=== PATIENT | male | born 1960 | race Asian ===

== ENCOUNTER 2017-01-29 05:54 | Inpatient (IN) | payer OTHER ==
--- NOTE | 2017-01-28 20:15 | Pre-op HX & Phy Repo 2 SIG ---
DATE OF ADMISSION: 01/29/2017 DATE OF SURGERY: 01/29/2017 HISTORY OF PRESENT ILLNESS: The patient is a 56-year-old, preoperative male to female sexual reassignment surgery patient in overall stable health. The patient presents with a diagnosis of gender dysphoria. PAST MEDICAL HISTORY: MEDICATIONS: Hormones that have been discontinued preoperatively, Avodart, and baby aspirin. ALLERGIES TO MEDICATIONS: None. OPERATIONS: Breast augmentation and facial feminization surgery. REVIEW OF SYSTEMS: GASTROINTESTINAL: The patient has a bowel movement every two to three days. The patient had colonoscopy in November 2016 that was negative. GENITOURINARY: The patient has occasional postvoid dribbling. No nocturia. The patient has a history of multiple small gallstones with a history of a passed common bile duct stone with an emergency room visit in approximately 2011. She has had occasional discomfort since, but rarely and had a CT scan in the recent past, which was negative. PHYSICAL EXAMINATION: GENERAL: The patient is 5 foot 10 inches, 150 pounds. ABDOMEN: Soft and nontender. There is no palpable mass. There is negative Boles sign. EXTREMITIES: Femoral pulses are 3+ bilaterally. RECTAL: Perianal skin is normal with skin tag x2. IMPRESSION: Gender dysphoria. PLAN: Sexual reassignment surgery, male to female. DISCUSSION: I have had a full discussion with the patient regarding my role in the surgery to create the vagina by dissecting the space between the urethra and bladder superiorly and the rectum posteriorly. I have discussed the nature of the procedure with the patient including the use of rigid sigmoidoscopy. I have discussed the risks including bleeding, infection, trauma to urinary tract or rectum, which could require additional procedures and also, I have discussed delayed presentation of a rectovaginal fistula that could require additional procedures and also I have discussed alterations in bowel function potentially. All questions have been answered. The patient understands and agrees to proceed. Tim Cerna M.D. DR: Suyapa JOB#: [id number] CC:
[~2017-01-29] VITALS: Ht 177.8 cm; Wt 68.0 kg
[2017-01-29] VITALS (19 sets, daily range): BP systolic 92–114; BP diastolic 52–74
[2017-01-29] MEDS ORDERED: AVODART0.5 MG ORAL (06:40)
[2017-01-29] MEDS ORDERED: ESTRADIOL0.5 MG PO (06:40)
[2017-01-29] MEDS ORDERED: MULTIVITAMINS1 EA14 PO (06:41)
[2017-01-29] MEDS ORDERED: ASPIR 8181 MG ORAL (06:41)
[2017-01-29] MEDS ORDERED: Bacitracin 50000 Units Vial ONE (07:03)
[2017-01-29] MEDS ORDERED: Bupivacaine 0.5% Inj 30 ml vial INJ ONE (07:04)
[2017-01-29] MEDS ORDERED: Lidocaine 1% 10mg/ml/Epi 0.005mg/ml 30ml vial INJ ONE (07:05)
[2017-01-29] MEDS ORDERED: Thrombin 5000 units TOPIC ONE (07:16)
[2017-01-29] MEDS ORDERED: Bupivacaine 0.25% Inj 30ml INJ ONE (07:17)
[2017-01-29] MEDS ORDERED: Lidocaine 1% 10mg/ml/EPI 0.01mg/ml 50ml INJ ONE (07:23)
[2017-01-29] MEDS ORDERED: Bacitracin Oint 15gm Tube TOPIC ONE (07:23)
[2017-01-29] MEDS ORDERED: fentaNYL 100 mcg/2 mL IV ONE (07:30)
[2017-01-29] MEDS ORDERED: LR 1000ml ONE (07:30)
[2017-01-29] MEDS ORDERED: Glycopyrrolate 0.2mg/ml 1ml Vial ONE (07:30)
[2017-01-29] MEDS ORDERED: Succinylcholine 20mg/ml 10ml vial ONE (07:30)
[2017-01-29] MEDS ORDERED: Zemuron 50mg/5ml Inj IV ONE (07:30)
[2017-01-29] MEDS ORDERED: Ketorolac 30mg Inj ONE (07:30)
[2017-01-29] MEDS ORDERED: Morphine Sulfate 10mg/ml Inj ONE (07:30)
[2017-01-29] MEDS ORDERED: Metoclopramide 10mg/2ml Inj ONE (07:30)
[2017-01-29] MEDS ORDERED: Dexamethasone 4mg/ml vial ONE (07:30)
[2017-01-29] MEDS ORDERED: Sterile Water Irrig 1000ml IRRIG ONE (07:30)
[2017-01-29] MEDS ORDERED: Midazolam 2mg/2ml Inj ONE (07:30)
[2017-01-29] MEDS ORDERED: Propofol 200mg/20ml IV ONE (07:30)
[2017-01-29] MEDS ORDERED: NS Irrig 1000ml ONE (07:30)
--- NOTE | 2017-01-29 07:54 | Pre-Procedure Note/Attestation ---
Pre-Procedure Note/Attestation Complete Prior to Procedure Planned Procedure: not applicable Procedure Narrative: Male to female sexual reassignment Indications for Procedure Pre-Operative Diagnosis: Gender dysphoria Attestation I attest that I discussed the nature of the procedure; its benefits; risks and complications; and alternatives (and the risks and benefits of such alternatives ), prior to the procedure, with the patient (or the patient's legal national sales representative). I attest that, if there was a reasonable possibility of needing a blood transfusion, the patient (or the patient's legal national sales representative) was given the [facility] standardized written summary, pursuant to the Martell [place] Blood Safety Act ([place] Health and Safety Code # 1645, as amended). I attest that I re-evaluated the patient just prior to the surgery and that there has been no change in the patient's H&P, except as documented below: SANTIAGO MUNOZ Jan 29, 2017 07:54
[2017-01-29] MEDS ORDERED: LR 1000ml 1,000 ML IVLG SCH (08:44)
[2017-01-29] MEDS ORDERED: fentaNYL 100 mcg/2 mL IV PRN (08:45)
[2017-01-29] MEDS ORDERED: Acetaminophen (Non formulary) 100 ML IV ONE (08:45)
[2017-01-29] MEDS ORDERED: Morphine Sulfate 2mg/ml Inj IVP PRN (08:45)
[2017-01-29] MEDS ORDERED: Metoclopramide 10mg/2ml Inj IVP PRN (08:45)
[2017-01-29] MEDS ORDERED: Ketorolac 30mg Inj IV PRN ×2 (08:45→16:15)
[2017-01-29] MEDS ORDERED: Midazolam 2mg/2ml Inj IVP PRN ×2 (08:45→16:15)
--- NOTE | 2017-01-29 08:48 | Anethesia Preoperative Eval ---
Anesthesia Pre-op PMH/ROS General Date of Evaluation: Jan 29, 2017 Time of Evaluation: 07:30 Anesthesiologist: lauro ASA Score: ASA 2 Mallampati Score Class I : Soft palate, uvula, fauces, pillars visible Class II: Soft palate, uvula, fauces visible Class III: Soft palate, base of uvula visible Class IV: Only hard plate visible Mallampati Classification: Class I Surgeon: alter Diagnosis: gender dysphoria Surgical Procedure: sexual reassignment Anesthesia History: none Social History: smoking Family History: no anesthesia problems Allergies: Coded Allergies: LACTOSE (Verified Allergy, Intermediate, UPSET STOMACH, 01/29/17) Medications: see eMAR Anesthesia Pre-op Phys. Exam Physician Exam Last Vital Signs Date Time Temp Pulse Resp B/P (MAP) Pulse Ox O2 Delivery O2 Flow Rate FiO2 01/29/17 07:08 97.8 78 17 109/74 97 Room Air Constitutional: NAD Neurologic: CN 2-12 intact Cardiovascular: RRR Respiratory: CTA Gastrointestinal: S/NT/ND Airway Exam Mallampati Score: Class I MO: full ROM: full Teeth: intact Anesthesia Pre-op A/P Risk Assessment & Plan Plan: GA Pre-Antibiotics Drug: Ancef Given Within 1 Hr of Incision: Yes Time Given: 08:30 Jack Ahumada M.D. Jan 29, 2017 08:48
[2017-01-29] MEDS ORDERED: Acetaminophen 650 MG SUPP RECTAL PRN ×2 (14:45→17:45)
--- NOTE | 2017-01-29 14:54 | Operative Note - PDOC ---
Operative Note Operative Note Chief Complaint: Gender dysphoria Pre-op Diagnosis: Gender dysphoria Procedure: Sexual reassignment Post-op Diagnosis: same as pre-op Surgeon: rachna Complications: none Condition: stable Estimated Blood Loss: volume - 250- Drains: ELAINA Implant(s) used?: No SANTIAGO MUNOZ Jan 29, 2017 14:54
[2017-01-29] MEDS ORDERED: Morphine Sulfate 2mg/ml Inj IV PRN (15:00)
[2017-01-29] MEDS ORDERED: Morphine Sulfate 4mg/ml Inj SUBQ PRN (15:00)
[2017-01-29] MEDS ORDERED: Rate Change PCA 1 Each MISC PRN (15:00)
[2017-01-29] MEDS ORDERED: PCA Morphine 1mg/ml 30 ML IV PRN (15:00)
[2017-01-29] MEDS ORDERED: PCA Morphine 1mg/ml 30 ML IV ONE (15:01)
[2017-01-29 18:03] LABS: MEAN CORPUSCULAR HEMOGLOBIN 29.4 PG (27.0-31.0); MEAN CORPUSCULAR HGB CONC 31.5 G/DL (32.0-36.0); MEAN CORPUSCULAR VOLUME 93 FL (80-99); MEAN PLATELET VOLUME 5.2 FL (6.5-10.1); PLATELET COUNT 321 K/UL (150-450); RED BLOOD COUNT 2.97 M/UL (4.20-5.40); RED CELL DISTRIBUTION WIDTH 11.4 % (11.6-14.8)
[2017-01-29 18:13] LABS: WHITE BLOOD COUNT 22.3 K/UL (4.8-10.8)
[2017-01-29] MEDS ORDERED: ceFAZolin sod 1 GM in D5W 55 ML IV SCH (18:30)
[2017-01-29] MEDS: PCA shift volume MISC SCH (19:00)
[2017-01-29 19:04] LABS: BAND NEUTROPHILS % (MANUAL) 1 % (0-8); LYMPHOCYTES % (MANUAL) 1 % (20-45); NEUTROPHILS % (MANUAL) 95 % (45-75); TOTAL CELLS COUNTED 100
[2017-01-29 19:05] LABS: BASOPHILS % (MANUAL) 0 % (0-2); EOSINOPHILS % (MANUAL) 0 % (0-3); HYPOCHROMASIA 1+; PLATELET ESTIMATE ADEQUATE; PLATELET MORPHOLOGY NORMAL; POLYCHROMASIA 1+
[2017-01-29] MEDS: D5 1/2NS w/KCl 20mEq 1,000 ML IV SCH (19:16)
[2017-01-29] MEDS ORDERED: PCA Education Pamphlet MISC ONE (20:00)
[2017-01-29] MEDS: Gentamicin 80mg/100ml Premix IVPB SCH (20:23)
--- NOTE | 2017-01-29 21:15 | Operative Note - Dictated ---
DATE OF OPERATION: 01/29/2017 SURGEON: Tim Cerna M.D. PREOPERATIVE DIAGNOSIS: Gender dysphoria. POSTOPERATIVE DIAGNOSIS: Gender dysphoria. OPERATION PERFORMED: Creation of the space for the vagina. DESCRIPTION OF PROCEDURE: I entered the operating room at the appropriate time after initial steps were undertaken by Dr. Samir Gtz. With a rigid proctoscope in the rectum, I incised the central perineal tendon with cautery and the levators on both sides to create a 2 to 3 fingerbreadths in width space. I then dissected the space between the urethra and prostate and bladder superiorly and the rectum posteriorly. The patient has a small pelvis and the space could only be dissected to 10 cm depth. Hemostasis was achieved with cautery. Then saline was placed in the operative field and the rectum was insufflated with the proctoscope. There was no evidence of extravasation and inspection through the proctoscope revealed no evidence of trauma to the rectum. The rectal air was suctioned free and the proctoscope was removed. A Betadine soaked vaginal pack was placed into the depths of the dissection and the procedure was continued by Dr. Gtz. Tim Cerna M.D. DR: KAYY JOB#: [id number] CC: BRUNO
[2017-01-30] VITALS: BP 88/52
--- NOTE | 2017-01-30 01:15 | Operative Note - Dictated ---
DATE OF OPERATION: 01/29/2017 PREOPERATIVE DIAGNOSIS: Kvhi-uk-[id number] gender dysphoria. POSTOPERATIVE DIAGNOSIS: [id number] gender dysphoria. PROCEDURE: [id number] gender reassignment using inverted penile vaginoplasty with scrotal full-thickness skin graft. SURGEON: Samir Gtz M.D. ANESTHESIA: General. INDICATIONS: The patient is a 56-year-old [id number]-[id number] transgender patient, who has fulfilled the requirements for sexual reassignment according to the [employer]. She has been on hormones. She has an uncircumcised penis, which is relatively thin. Testicles are descended and are somewhat atrophic. OPERATION: The patient was given general anesthesia. She was placed in lithotomy position and prepped and draped in the usual manner. Scrotal skin was excised from the penoscrotal junction to the perineum in an elliptical manner to get skin graft for the vaginoplasty. The lateral portion of the scrotum was left remaining. Blunt and sharp dissection was then done to dissect each testicle up to the external ring inside the tunica vaginalis. The spermatic cords were clamped, cut, and double suture-ligated with #0 silk sutures. The patient was uncircumcised. A circumcision incision was made leaving 1 cm cuff of skin dorsally on the glans. The penis was then degloved and delivered into the opening in the perineum where the scrotal skin was removed. Dissection was then proceeded to each of the crura. A #1 Ethibond suture was then placed circumferentially around the base of each yaneth and tied. Blunt and sharp dissection was then done over the pubic symphysis to dissect the skin and subcutaneous tissue of the abdomen to be able to pull it down towards the perineum. Once sufficient dissection was done, the abdominal skin was kept more posterior by tying a 4 x 4 bolster down from the skin through the rectus fascia now through the skin again. Dr. Cerna then proceeded to dissect the space for the neovagina. He was able to get approximately 10 cm in depth. The scrotal skin was then defatted. It was formed over a vaginal dilator by suturing to itself to give the shape of vaginal vault. The patient's circumcision skin was rather tight for the vaginal vault. Therefore, an incision was made through the circumcision skin with some excess skin excised, however, a good portion of the prepuce was kept and was well vascularized since it was needed for the vaginal canal. The neovagina was formed over a vaginal dilator. The preputial skin was sutured to some of the penile skin with 3-0 Vicryl sutures. There was excellent vascularity of the preputial skin and the penile skin. The skin was then sutured to the scrotal skin graft with 3-0 Vicryl sutures to give a depth of approximately 10 cm. Incision was then made just lateral to the urethra through the tunica into each corporal body. The incision was made from the yaneth on each side all the way into the distal corporal bodies. The cavernosal spongy tissue was then dissected off the inside of the tunica vaginalis and all the spongiosum was removed. The cavernosal vessel on the left side was clamped, cut, and suture-ligated. No cavernosal vessel was found on the right side. In fact, the right side dorsally did not have any apparent dorsal artery or nerves, however, there were excellent nerves and excellent dorsal artery on the left side. A neoclitoris was then made by pentagonal incision with the base being at 12 o'clock position of the glans. Through the tip of the corporal body, the glans was cut on each side and freed up from the rest of the glans. The glans was intact with the tunica albuginea and the dorsal neurovascular bundle. There was excellent bleeding from the new neoclitoris. The tunica was then folded on itself over the pubic symphysis and placed with interrupted 2-0 Vicryl sutures. Some residual skin that was left on the distal penis was then sutured to the lateral portions of the neoclitoris with running 5-0 Monocryl suture and then sutured to itself with a running 5-0 Monocryl suture to create a dorsal law. The cavernosal muscle was then dissected off of the bulb of the urethra. The patient had a very large bulbous spongiosum. The urethra was then cut in the mid bulb. Blunt and sharp dissection was done to remove a lot of the spongiosum inside the bulb. The space was closed as was possible with interrupted 4-0 Vicryl sutures. The urethra was spatulated at the 6 o'clock. The urethral mucosa was then sutured to the capsule of the bulb with a running locking 4-0 Monocryl suture. The penile skin was then inverted towards the vagina. An inverted-Y incision was made in the midline of the inverted penile skin over the neoclitoris, which was then delivered into that incision. It was sutured in place with running 5-0 Monocryl suture. A vertical incision was made over the urethra, which was then delivered through the inverted penile skin. It was sutured in place with running locking 4-0 Monocryl suture. Armijo was replaced into the bladder. The vaginal packing was then removed. The neovagina was then filled with a balloon dilator measuring 14 cm in length. It was inserted into the vaginal vault and 105 mL was placed into the balloon tissue benefit director. The 6 o'clock position of the skin was sutured to the perineum with interrupted 3-0 Vicryl sutures. The #10 Shane-Newman drains were placed through separate stab incision in the right and left perineum. The right Shane-Newman went along the right side into the pubic space. The anterior portion of the inverted penile skin of old scrotum was then shaped to be labia majora. The excess skin and the areolar tissue was excised on each side. A 2-0 Vicryl suture was placed lateral to the clitoris on each side from the skin into the endopelvic fascia and out through the skin to create a labial sulcus. This was also done more dependently from the skin through the yaneth of each corporal body and now through the skin again to define the labial sulcus. The lower half of the vulva was closed with interrupted 3-0 Vicryl sutures. The anterior half was closed with 4-0 Vicryl through the Dartos fascia and subcuticular suture of 4-0 Vicryl on the skin. A Armijo was left indwelling. A bolster was placed to prevent the vaginal stent from being expelled. The patient tolerated procedure well. She left the operating room in good condition. Samir Gtz M.D. DR: Sherman JOB#: [id number] CC:
[2017-01-30] MEDS: ceFAZolin 1gm/50ml Premix 50 ML IV SCH ×3 (03:00→18:51)
[2017-01-30] MEDS: D5 1/2NS w/KCl 20mEq 1,000 ML IV SCH ×3 (03:00→19:00)
[2017-01-30] MEDS: Gentamicin 80mg/100ml Premix IVPB SCH (03:35)
[2017-01-30 04:00] VITALS: BP 85/50
--- NOTE | 2017-01-30 07:01 | General Progress Note ---
Progress Note Progress Note Afebrile. VSS. Doing well. BP 85. Hct pending. SANTIAGO MUNOZ Jan 30, 2017 07:01
[2017-01-30] MEDS: PCA shift volume MISC SCH ×2 (07:24→19:15)
[2017-01-30 07:27] LABS: BASOPHILS % (AUTO) 0.3 % (0.0-2.0); LYMPHOCYTES % (AUTO) 13.6 % (20.0-45.0); MEAN CORPUSCULAR HEMOGLOBIN 30.5 PG (27.0-31.0); MEAN CORPUSCULAR HGB CONC 33.5 G/DL (32.0-36.0); MEAN CORPUSCULAR VOLUME 91 FL (80-99); MEAN PLATELET VOLUME 5.7 FL (6.5-10.1); MONOCYTES % (AUTO) 6.9 % (1.0-10.0); NEUTROPHILS % (AUTO) 79.3 % (45.0-75.0); PLATELET COUNT 299 K/UL (150-450); RED BLOOD COUNT 2.67 M/UL (4.20-5.40); RED CELL DISTRIBUTION WIDTH 11.6 % (11.6-14.8); WHITE BLOOD COUNT 16.8 K/UL (4.8-10.8)
[2017-01-30 08:00] VITALS: BP 89/52
[2017-01-30] MEDS: Simethicone 80mg tab ORAL PRN ×2 (11:55→18:51)
[2017-01-30 12:00] VITALS: BP 94/57
--- NOTE | 2017-01-30 12:07 | 48 Hour Post Anesthesia Eval ---
Post Anesthesia Evaluation Procedure: Sexual reasingment male to female Date of Evaluation: Jan 30, 2017 Blood Pressure Systolic: 90 0: 51 Pulse Rate: 78 Respiratory Rate: 22 Temperature (Fahrenheit): 97.6 O2 Sat by Pulse Oximetry: 98 Airway: patent Nausea: No Vomiting: No Pain Intensity: 3 Hydration Status: adequate Cardiopulmonary Status: tendency to hypotension postoperative blood loss will discuss with surgeon possible blood transfusion Mental Status/LOC: patient returned to baseline Follow-up Care/Observations: n/a Post-Anesthesia Complications: none Follow-up care needed: N/A ROSEMARY COLLINS M.D. Jan 30, 2017 12:07
[2017-01-30 16:00] VITALS: BP 105/62
[2017-01-30] MEDS ORDERED: Tubing IV Secondary IV ONE (17:15)
[2017-01-30 17:30] LABS: ANION GAP 5 mmol/L (5-15); CALCIUM 6.3 MG/DL (8.5-10.1); CARBON DIOXIDE 26 MMOL/L (21-32); CHLORIDE 108 MMOL/L (98-107); CREATININE 0.7 MG/DL (0.55-1.30); GLOMERULAR FILTRATION RATE > 60 mL/min (>60); POTASSIUM 3.7 MMOL/L (3.5-5.1); SODIUM 139 MMOL/L (136-145)
[2017-01-30 20:00] VITALS: BP 103/58
[2017-01-31] VITALS: BP 98/59
[2017-01-31] MEDS: D5 1/2NS w/KCl 20mEq 1,000 ML IV SCH ×3 (02:12→18:25)
[2017-01-31] MEDS: ceFAZolin 1gm/50ml Premix 50 ML IV SCH ×3 (02:12→18:24)
[2017-01-31 04:00] VITALS: BP 102/58
[2017-01-31] MEDS: PCA shift volume MISC SCH ×2 (07:21→19:00)
--- NOTE | 2017-01-31 07:54 | General Progress Note ---
Progress Note Progress Note Afebrile. VSS stable. Quinten decreasing. Wounds fine. SANTIAGO MUNOZ Jan 31, 2017 07:54
[2017-01-31 08:00] VITALS: BP 103/63
[2017-01-31] MEDS ORDERED: Enoxaparin 40mg Inj SUBQ SCH (09:00)
[2017-01-31] MEDS: Simethicone 80mg tab ORAL PRN (09:09)
[2017-01-31] MEDS: Enoxaparin 40mg Inj SUBQ SCH (09:11)
[2017-01-31 09:45] LABS: BASOPHILS % (AUTO) 0.4 % (0.0-2.0); EOSINOPHILS % (AUTO) 0.1 % (0.0-3.0); MEAN CORPUSCULAR HEMOGLOBIN 30.5 PG (27.0-31.0); MEAN CORPUSCULAR HGB CONC 32.4 G/DL (32.0-36.0); MEAN CORPUSCULAR VOLUME 94 FL (80-99); MEAN PLATELET VOLUME 5.9 FL (6.5-10.1); MONOCYTES % (AUTO) 6.5 % (1.0-10.0); PLATELET COUNT 330 K/UL (150-450); RED BLOOD COUNT 2.73 M/UL (4.20-5.40); RED CELL DISTRIBUTION WIDTH 11.8 % (11.6-14.8); WHITE BLOOD COUNT 13.1 K/UL (4.8-10.8)
[2017-01-31 12:00] VITALS: BP_SYST 106; BP_SYST 108; BP_DIAS 61
[2017-01-31] MEDS ORDERED: PCA Education Pamphlet MISC ONE (15:30)
[2017-01-31] MEDS ORDERED: Rate Change PCA 1 Each MISC PRN (15:30)
[2017-01-31] MEDS ORDERED: Naloxone 0.4mg/ml Inj IVP PRN (15:30)
[2017-01-31] MEDS ORDERED: PCA Morphine 1mg/ml 30 ML IV PRN (15:30)
[2017-01-31 16:00] VITALS: BP 106/61
[2017-01-31 20:00] VITALS: BP 104/62
[2017-02-01] VITALS: BP 103/61
[2017-02-01] MEDS: ceFAZolin 1gm/50ml Premix 50 ML IV SCH ×2 (03:22→09:29)
[2017-02-01 04:00] VITALS: BP 103/63
[2017-02-01] MEDS: PCA shift volume MISC SCH (07:00)
[2017-02-01 08:00] VITALS: BP 103/61
[2017-02-01] MEDS: Enoxaparin 40mg Inj SUBQ SCH (09:30)
--- NOTE | 2017-02-01 09:50 | General Progress Note ---
Progress Note Progress Note Afebrile. VSS. Wounds fine. Hct 25 TAMMYSANTIAGO Feb 01, 2017 09:50
[2017-02-01 12:00] VITALS: BP 112/69
[2017-02-01] MEDS ORDERED: Norco 5mg/325mg tab ORAL PRN (13:45)
[2017-02-01 16:00] VITALS: BP 115/67
[2017-02-01] MEDS: ceFAZolin 1gm in D5W 55ml IVPB SCH (17:23)
[2017-02-01 20:00] VITALS: BP 101/59
[2017-02-02] VITALS: BP 100/60
[2017-02-02] MEDS: ceFAZolin 1gm in D5W 55ml IVPB SCH ×3 (02:18→17:53)
[2017-02-02 04:00] VITALS: BP 102/62
[2017-02-02] MEDS: D5 1/2NS w/KCl 20mEq 1,000 ML IV SCH (07:12)
[2017-02-02 08:00] VITALS: BP 96/53
[2017-02-02] MEDS: Enoxaparin 40mg Inj SUBQ SCH (09:51)
[2017-02-02 12:15] VITALS: BP 104/62
[2017-02-02 16:00] VITALS: BP 105/67
[2017-02-02 20:00] VITALS: BP 107/61
[2017-02-03] VITALS: BP 109/63
[2017-02-03] MEDS: ceFAZolin 1gm in D5W 55ml IVPB SCH ×4 (02:08→19:53)
[2017-02-03 04:00] VITALS: BP 102/59
[2017-02-03 08:26] VITALS: BP 100/63
[2017-02-03] MEDS: Enoxaparin 40mg Inj SUBQ SCH (08:58)
--- NOTE | 2017-02-03 09:31 | General Progress Note ---
Progress Note Progress Note Afebrile. VSS.. Wound fine. SANTIAGO MUNOZ Feb 03, 2017 09:31
[2017-02-03 12:02] VITALS: BP 94/56
[2017-02-03 16:00] VITALS: BP 99/69
[2017-02-03 20:00] VITALS: BP 98/60
[2017-02-04] VITALS: BP 102/62
[2017-02-04 04:00] VITALS: BP 98/64
[2017-02-04] MEDS: ceFAZolin 1gm in D5W 55ml IVPB SCH ×2 (04:00→11:51)
--- NOTE | 2017-02-04 07:12 | General Progress Note ---
Progress Note Progress Note Afebrile. VSS. Wounds fine. Drains and Armijo out. Discharge SANTIAGO MUNOZ Feb 04, 2017 07:12
[2017-02-04 08:03] VITALS: BP 102/57
[2017-02-04] MEDS: Enoxaparin 40mg Inj SUBQ SCH (08:43)
[2017-02-04] MEDS: Simethicone 80mg tab ORAL PRN (09:08)
[2017-02-04 09:55] VITALS: BP_SYST 107; BP_SYST 91; BP_SYST 96; BP_DIAS 55; BP_DIAS 56; BP_DIAS 68
[2017-02-04 13:00] VITALS: BP 122/71
--- NOTE | 2017-02-05 15:32 | Discharge Summary ---
Discharge Summary Hospital Course Date of Admission Jan 29, 2017 at 05:54 Date of Discharge Feb 04, 2017 at 13:40 Admitting Diagnosis HPI Юлия Sheikh is a 56 year old female who was admitted on Jan 29, 2017 at 05:54 for Gender Dysphoria Hospital Course [id number] Discharge Discharge Disposition Patient was discharged to Home (01) Discharge Diagnoses: Marta Sprague NP Feb 05, 2017 15:32
--- NOTE | 2017-02-05 20:30 | Discharge Summary 2 SIG ---
DATE OF ADMISSION: 01/29/2017 DATE OF DISCHARGE: 02/04/2017 CO-SURGEON: Tim Cerna M.D. BRIEF HOSPITAL COURSE: The patient is a 56-year-old female, who has gender dysphoria and has undergone breast augmentation and facial feminization surgery, who was on hormones preoperatively and has been discontinued, was admitted on 01/29/2017 and underwent male to female gender reassignment using inverted penile vaginoplasty with scrotal full-thickness skin graft by Dr. Gtz and Dr. Cerna performing a creation of the space for the vagina. Postoperatively, she was given pain management. Hemoglobin and hematocrit was monitored. She was placed on Lovenox for DVT prophylaxis. She was given Ancef. Leukocytosis resolved. The patient was afebrile. Shane-Newman drain was removed. Armijo was discontinued. She was voiding well. Postvoid bladder scan done, 80 mL obtained. She was ambulating well. The patient was eventually cleared for discharge home. FINAL DIAGNOSIS: Gender dysphoria, status post sexual reassignment surgery male to female. Please refer to operative report. DISPOSITION: The patient was discharged home. DISCHARGE INSTRUCTIONS: Follow up as outpatient. FOLLOWUP: Follow up with oral surgery as outpatient. Samir Gtz M.D. I have been assigned to dictate discharge summary on this account and I was not involved in the patient's management. Marta Sprague N.P. DR: ROBERT JOB#: [id number] CC:
== END 2017-02-04 13:40 | disposition home or self-care (01) | DRG 876 ==
LOC: EDSEX 05:54 → SDSOVERFLO 05:54 → 3E 17:55
PROC: 0W4M0Z0 (ICD-10-PCS; principal; 2017-01-29 07:30)
DX: F64.9 Gender identity disorder, unspecified (principal)
CPT/HCPCS: 36415; 80048; 85007; 85025; 86850; 86900; 86901; 86920; 87081; 94003; 94150; J1580; J2250; J2405; J2765